=== PATIENT | male | born 1935 | race Caucasian/White ===

== ENCOUNTER 2023-04-10 22:47 | Emergency (ER) | payer BC ==
[~2023-04-10] VITALS: Ht 170.2 cm; Wt 86.4 kg
[2023-04-10 22:55] VITALS: BP 145/56
[2023-04-11] MEDS ORDERED: SILVER SULFADIAZINE 1 % TOPICAL CREAM 50GM TOP ONE (01:30)
[2023-04-11] MEDS ORDERED: SILV1CRE98 EX (03:32)
[2023-04-11] MEDS ORDERED: CEPH-322 PO (03:32)
== END 2023-04-11 04:58 | disposition home or self-care (01) ==
LOC: ER 22:47
DX: T24.212A Burn of second degree of left thigh, initial encounter (principal); T21.22XA Burn of second degree of abdominal wall, initial encounter; F41.9 Anxiety disorder, unspecified; F32.9 Major depressive disorder, single episode, unspecified; K21.9 Gastro-esophageal reflux disease without esophagitis; M10.9 Gout, unspecified; E78.5 Hyperlipidemia, unspecified; I10 Essential (primary) hypertension; X12.XXXA Contact with other hot fluids, initial encounter; Y93.G3 Activity, cooking and baking; Y92.89 Other specified places as the place of occurrence of the external cause; Y99.8 Other external cause status
CPT/HCPCS: 16020